=== PATIENT | female | born 1980 ===

== ENCOUNTER 2020-08-22 12:00 | Outpatient (CLI) | payer OTHER, SELFPAY | END 2020-08-22 12:01 | disposition home or self-care (01) | LOC: SLEEP 08-23 10:38 | PROVIDERS: Visit Provider Nurse Practitioner Family | DX: R53.83 Other fatigue (principal); R40.0 Somnolence; G47.33 Obstructive sleep apnea (adult) (pediatric) | CPT/HCPCS: G0399 ==

== ENCOUNTER 2020-10-21 20:00 | Outpatient (CLI) | payer OTHER, SELFPAY | END 2020-10-21 20:01 | disposition home or self-care (01) | LOC: SLEEP 10-22 09:10 | PROVIDERS: Visit Provider Nurse Practitioner Family | DX: G47.33 Obstructive sleep apnea (adult) (pediatric) (principal) | CPT/HCPCS: 95811 ==